=== PATIENT | female | born 1970 | race Caucasian/White ===

== ENCOUNTER 2017-03-03 20:44 | Emergency (ER) | payer OTHER ==
[~2017-03-03] VITALS: Ht 170.2 cm; Wt 98.2 kg
[~2017-03-03 20:44] MED LIST: NAPR250T4 PO
[2017-03-03] MEDS ORDERED: PROZ5L PO (21:00)
[2017-03-03] MEDS ORDERED: OMEP20 PO (21:00)
[2017-03-03 21:05] VITALS: BP 132/74
[2017-03-03] MEDS ORDERED: DEXAMETHASONE SOD PHOS 4 MG/ML VIAL PO ONE (21:15)
== END 2017-03-03 21:58 | disposition home or self-care (01) ==
LOC: EMS 20:47
DX: J06.9 Acute upper respiratory infection, unspecified (principal); J02.9 Acute pharyngitis, unspecified
CPT/HCPCS: 99283; J1100

== ENCOUNTER 2018-01-05 18:12 | Emergency (ER) | payer OTHER ==
[~2018-01-05] VITALS: Ht 170.2 cm; Wt 100.0 kg
[~2018-01-05 18:12] MED LIST changes: +FLUO20SO9 PO; +OMEP20 PO
[2018-01-05 18:15] VITALS: BP 144/87
== END 2018-01-05 20:45 | disposition left against medical advice (07) ==
LOC: EMS 18:13
DX: R07.9 Chest pain, unspecified (principal); Z53.21 Procedure and treatment not carried out due to patient leaving prior to being seen by health care provider
CPT/HCPCS: 93005

== ENCOUNTER 2018-06-14 16:47 | Emergency (ER) | payer OTHER ==
[~2018-06-14] VITALS: Ht 170.2 cm; Wt 100.0 kg
[~2018-06-14 16:47] MED LIST changes: -FLUO20SO9 PO; -NAPR250T4 PO
[2018-06-14] MEDS ORDERED: ACET-784 PO (16:52)
[2018-06-14 17:26] LABS: GLUCOSE,POINT OF CARE 195 MG/DL (70-110)
[2018-06-14] MEDS ORDERED: BENZOCAINE/MENTHOL LOZENGE PO ONE (18:00)
[2018-06-14] MEDS ORDERED: SODIUM CHLORIDE 0.9% 1,000 ML IV ONE (18:00)
[2018-06-14 19:09] VITALS: BP 123/75
== END 2018-06-14 19:57 | disposition home or self-care (01) ==
LOC: EMS 16:47
DX: J02.0 Streptococcal pharyngitis (principal); M79.10 Myalgia, unspecified site; R51 Headache; Z88.6 Allergy status to analgesic agent
CPT/HCPCS: 82962; 87430; 99283; J7030

== ENCOUNTER 2019-12-10 20:59 | Emergency (ER) | payer OTHER ==
[~2019-12-10] VITALS: Ht 162.6 cm; Wt 104.5 kg
[~2019-12-10 20:59] MED LIST changes: +ACET-784 PO; -OMEP20 PO
[2019-12-10 21:06] VITALS: BP 130/60
== END 2019-12-10 22:09 | disposition left against medical advice (07) ==
LOC: EMS 20:59
DX: R25.2 Cramp and spasm (principal); Z53.21 Procedure and treatment not carried out due to patient leaving prior to being seen by health care provider

== ENCOUNTER 2020-06-16 21:11 | Emergency (ER) | payer OTHER ==
[~2020-06-16] VITALS: Ht 167.6 cm; Wt 100.0 kg
[2020-06-16 22:12] VITALS: BP 137/74
[2020-06-16] MEDS ORDERED: ACETAMINOPHEN 325 MG TABLET PO ONE (22:15)
[2020-06-16] MEDS ORDERED: AMOX TR/POT CLAV 875 MG/125 MG TABLET PO ONE (22:45)
[2020-06-16] MEDS ORDERED: OxyCODONE HCL 5 MG IR TABLET PO ONE (22:45)
== END 2020-06-16 23:03 | disposition home or self-care (01) ==
LOC: EMS 21:12
DX: K08.89 Other specified disorders of teeth and supporting structures (principal); F17.210 Nicotine dependence, cigarettes, uncomplicated; Z88.6 Allergy status to analgesic agent
CPT/HCPCS: 99283

== ENCOUNTER 2020-09-19 22:44 | Emergency (ER) | payer OTHER ==
[~2020-09-19] VITALS: Ht 170.2 cm; Wt 109.1 kg
[2020-09-19] MEDS ORDERED: AMOX1TAB16 PO (23:16)
[2020-09-20 02:08] VITALS: BP 156/76
== END 2020-09-20 02:08 | disposition home or self-care (01) ==
LOC: EMS 22:46
DX: F45.8 Other somatoform disorders (principal); R07.0 Pain in throat; F17.210 Nicotine dependence, cigarettes, uncomplicated; Z88.6 Allergy status to analgesic agent
CPT/HCPCS: 70360; 99283

== ENCOUNTER 2022-03-28 18:12 | Emergency (ER) | payer OTHER ==
[~2022-03-28] VITALS: Ht 170.2 cm; Wt 118.2 kg
[~2022-03-28 18:12] MED LIST changes: -ACET-784 PO; +AMOX1TAB16 PO
[2022-03-28 18:47] VITALS: BP 121/74
[2022-03-28] MEDS ORDERED: PERCT PO (18:57)
[2022-03-28] MEDS ORDERED: PENI500T2 PO (18:57)
[2022-03-28] MEDS ORDERED: OxyCODONE HCL/ACETAMINOPHEN 5-325 MG TABLET PO ONE (19:00)
[2022-03-29] MEDS ORDERED: PENI500T2 PO (12:20)
[2022-03-29] MEDS ORDERED: PERCT PO (12:20)
== END 2022-03-28 19:24 | disposition home or self-care (01) ==
LOC: EMS 18:12
DX: K04.7 Periapical abscess without sinus (principal); K02.9 Dental caries, unspecified; N83.209 Unspecified ovarian cyst, unspecified side; F17.210 Nicotine dependence, cigarettes, uncomplicated; Z98.890 Other specified postprocedural states; Z79.1 Long term (current) use of non-steroidal anti-inflammatories (NSAID)
CPT/HCPCS: 99283

== ENCOUNTER 2022-07-12 19:51 | Emergency (ER) | payer OTHER ==
[~2022-07-12] VITALS: Ht 167.6 cm; Wt 122.7 kg
[~2022-07-12 19:51] MED LIST changes: +PENI500T2 PO; +PERCT PO
[2022-07-12 19:57] VITALS: BP 139/72
[2022-07-12] MEDS ORDERED: ACETAMINOPHEN 500 MG TABLET PO ONE (20:30)
== END 2022-07-12 20:43 | disposition home or self-care (01) ==
LOC: EMS 19:52
DX: S09.90XA Unspecified injury of head, initial encounter (principal); F17.210 Nicotine dependence, cigarettes, uncomplicated; Z98.890 Other specified postprocedural states; Z88.8 Allergy status to other drugs, medicaments and biological substances; W22.8XXA Striking against or struck by other objects, initial encounter; Y93.89 Activity, other specified; Y92.812 Truck as the place of occurrence of the external cause; Y99.8 Other external cause status
CPT/HCPCS: 99282; Z7502; Z7610